=== PATIENT | female | born 1975 | race African-American/Black ===

== ENCOUNTER 2016-08-10 21:08 | Emergency (ER) | payer SELFPAY ==
[~2016-08-10] VITALS: Ht 154.9 cm; Wt 102.1 kg
[~2016-08-10 21:08] MED LIST: LIS20T PO; METO50TA7 PO; PHE100C PO; RIS1T PO
[2016-08-10 23:43] LABS: Basophils # (auto) 0.1 uL; Basophils % (auto) 0.6 % (0.0-2.0); Eosinophils # (auto) 0.4 uL; Hematocrit 37.9 % (36.0-46.0); Hemoglobin 12.2 g/dL (12.2-16.2); Lymphocytes # (auto) 2.6 uL; Lymphocytes % (auto) 21.3 % (10.0-50.0); Mean Corpuscular Hgb Conc. 32.1 g/dL (32.0-36.0); Mean Corpuscular Volume 87.1 fL (80.0-100.0); Mean Platelet Volume 8.5 fL (7.4-10.4); Monocytes # (auto) 0.9 uL; Monocytes % (auto) 7.2 % (0.0-12.0); Neutrophils # (auto) 8.1 uL; Neutrophils % (auto) 67.9 % (37.0-80.0); Platelet Count (auto) 407 10^3/uL (140-450); Red Cell Distribution Width 14.3 % (11.6-16.0); SUSPECT VIEW TRANSMISSION; White Blood Cell 12.1 10^3/uL (4.4-10.8)
[2016-08-10 23:50] LABS: Albumin 3.3 g/dL (3.4-5.0); Anion Gap 9 (5-15); Aspartate Aminotransferase 33 U/L (15-37); BUN/Creatinine Ratio 23.1; Blood Urea Nitrogen 15 mg/dL (7-18); Calcium 8.4 mg/dL (8.5-10.1); Carbon Dioxide 27 mmol/L (21-32); Chloride 106 mmol/L (98-107); GFR African American 128 mL/min; GFR Non-African American 106 mL/min; Glucose 108 mg/dL (74-106); Potassium 3.4 mmol/L (3.5-5.1); Salicylate < 1.7 mg/dL (2.8-20.0); Sodium 142 mmol/L (136-145)
[2016-08-10 23:52] LABS: Acetaminophen < 2.0 ug/mL (10-30); Alkaline Phosphatase 86 U/L (45-117); Bilirubin, Total 0.5 mg/dL (0.2-1.0); Total Protein 7.3 g/dL (6.4-8.2)
[2016-08-11] MEDS: POTASSIUM CHL 10% (20 MEQ/15ML) ORAL SOLN PO ONE (01:30)
[2016-08-11 01:34] LABS: Urine RBC None Seen /hpf (0 - 4)
[2016-08-11 01:58] LABS: Urine Bilirubin Negative (Negative); Urine Blood Negative /uL (Negative); Urine Color Yellow (Yellow); Urine Glucose Normal (Normal); Urine Ketone 1+ (Negative); Urine Mucus FEW (None Seen); Urine Nitrite Negative (Negative); Urine Squamous Epithelial Cell MOD /hpf (<5); Urine Urobilinogen Normal (Negative); Urine pH 5.5 (5.0-8.0)
[2016-08-11 02:39] VITALS: BP 136/88
== END 2016-08-11 02:39 | disposition home or self-care (01) ==
LOC: EDBD 21:08 → ER 21:17
DX: E87.6 Hypokalemia (principal); I10 Essential (primary) hypertension; F20.9 Schizophrenia, unspecified; Z59.0 Homelessness; Z79.899 Other long term (current) drug therapy; F17.210 Nicotine dependence, cigarettes, uncomplicated
CPT/HCPCS: 36415; 71010; 80053; 80329; 81001; 81025; 84702; 85025; 93005; 99285; G0434